=== PATIENT | male | born 1945 | race Caucasian/White ===

== ENCOUNTER 2017-08-07 19:33 | Emergency (ER) | payer MEDICARE, BC ==
[2017-08-07 20:33] LABS: Bilirubin Negative (Negative); Blood, Urine Moderate (Negative); Clarity Clear (Clear); Glucose, Urine (Dipstick) Negative (Negative); Leukocyte Negative (Negative); Nitrite Negative (Negative); Protein, Urine (Dipstick) Negative (Neg-Trace); Specific Gravity, Urine 1.025 (1.005-1.030)
[2017-08-07 20:40] LABS: Bacteria/HPF None Seen HPF (None Seen); Hyaline Casts/LPF 0-3 HYALINE CAST LPF (0-3 Hyaline); Transitional Epithelial 0-3 HPF (0-3); WBC/HPF 0-3 HPF (0-3); Yeast-All Forms Rare HPF (None Seen)
[2017-08-07 20:45] LABS: #Basophils 0.1 thou/uL (0.0-0.2); #Eosinphils 0.2 thou/uL (0.0-0.7); #Lymphocytes 1.3 thou/uL (1.20-3.40); #Neutrophils 8.9 thou/uL (1.40-6.50); %Basophils 0.6 % (0.0-1.0); %Eosinophils 1.4 % (0.0-10.0); %Lymphocytes 11.4 % (21.0-51.0); %Monocytes 8.7 % (0.0-10.0); %Neutrophils 77.8 % (42.0-75.0); Hemoglobin 14.9 g/dL (14.0-18.0); Mean Corpuscular Hemoglobin 29.2 pg (27.0-31.0); Mean Corpuscular Volume 83.3 fl (80.0-94.0); Mean Platelet Volume 6.5 fL (7.4-10.4); Platelet Count 208 thou/uL (130-400); Red Blood Cell (RBC) Count 5.12 mill/uL (4.70-6.10); White Blood Cell (WBC) Count 11.4 thou/uL (4.8-10.8)
[2017-08-07 20:49] LABS: ALT (SGPT) 11 U/L (8-55); AST (SGOT) 14 U/L (5-34); Albumin 3.8 g/dL (3.4-4.8); Alkaline Phosphatase 82 U/L (40-150); Anion Gap 14 mmol/L (10-20); BUN (Urea Nitrogen) 17 mg/dL (8.4-25.7); Bilirubin, Total 0.8 mg/dL (0.2-1.2); Calc. Creatinine Clearance 0 mL/min (70-130); Calcium 9.2 mg/dL (7.8-10.44); Carbon Dioxide 20 mmol/L (23-31); Chloride 106 mmol/L (98-107); Estimated GFR-MDRD 57; Globulin 3.1 g/dL (2.4-3.5); Glucose 103 mg/dL (83-110); Potassium 3.8 mmol/L (3.5-5.1); Protein, Total 6.9 g/dL (5.8-8.1); Sodium 136 mmol/L (136-145)
--- NOTE | 2017-08-07 21:50 | CT ---
NONCONTRAST CT ABDOMEN AND PELVIS: 08/07/2017 HISTORY: Left flank pain and back pain with onset of symptoms this morning. Vomiting. COMPARISON: 11/19/2016 FINDINGS: There is bibasilar atelectasis and/or mild scarring. Post cholecystectomy changes are again present. Nonobstructing bilateral renal calculi are again seen. There is now mild left hydronephrosis and hyd roureter with an approximately 4 mm calculus within the proximal left ureter. There is perinephric s tranding seen on the left, which is asymmetric, compared to the right. The previously noted hematoma in the left perinephric fat noted on the prior study has resolved. No right ureteral calculus or hydronephrosis is present. There is a stable subcentimeter hypodense lesion in the left hepatic lobe. Post cholecystectomy changes are noted. The spleen, pancreas, bilateral adrenal glands, and decompressed urinary bladder demonstrate a grossl y normal nonenhanced CT appearance. An IVC filter is again noted in place. There is colonic diverticulosis. Vascular calcifications are again seen in the abdominal aorta and iliac arteries. Degenerative changes are again present in the spine, and there is a stable compression fracture of th e L4 vertebral body, although height loss, centrally, may be slightly greater than on the prior study , and there is now a prominent Schmorl's node at the superior endplate. Multilevel degenerative hurt ges are again seen throughout the lumbar spine. IMPRESSION: 1. Partially obstructing proximal left ureteral calculus measuring 4 mm. 2. Nonobstructing bilateral renal calculi. 3. Colonic diverticulosis. 4. The remainder of the findings are as described above and are unchanged from prior exam, although there has been resolution of the bilateral pleural effusions and left perinephric hematoma since the prior study. POS: BREN
[2017-08-07] MEDS ORDERED: traMADol HCl 50 MG TAB ONE (22:04)
== END 2017-08-07 22:10 | disposition home or self-care (01) ==
LOC: SCSER 19:33
DX: N13.2 Hydronephrosis with renal and ureteral calculous obstruction (principal); I25.2 Old myocardial infarction; F03.90 Unspecified dementia, unspecified severity, without behavioral disturbance, psychotic disturbance, mood disturbance, and anxiety; F41.9 Anxiety disorder, unspecified; F32.9 Major depressive disorder, single episode, unspecified; Z86.73 Personal history of transient ischemic attack (TIA), and cerebral infarction without residual deficits; Z87.891 Personal history of nicotine dependence
CPT/HCPCS: 51701; 74176; 80053; 81003; 81015; 85025

== ENCOUNTER 2017-10-30 13:26 | Emergency (ER) | payer MEDICARE, BC ==
--- NOTE | 2017-10-30 14:34 | CT ---
CT OF THE ABDOMEN AND PELVIS WITHOUT CONTRAST: Date: 10/31/17 PROVIDED CLINICAL HISTORY: Flank pain. FINDINGS: Comparison with 08/07/17. The visualized lung bases appear clear. Nonobstructing right renal calculus is seen. No additional ur inary tract calculi are evident. Solid abdominal organs are suboptimally evaluated without IV contras t, but demonstrate an otherwise unremarkable unenhanced CT appearance. Stable right hepatic lobe cyst . No bowel dilatation, inflammatory fat stranding, free fluid, or free air apparent. Vascular calcifica tions are seen. The osseous structures demonstrate no concerning lytic or blastic lesions. Degenerative changes are s een involving the lumbar spine. IVC filter is again noted in place. IMPRESSION: Nonobstructing right nephrolithiasis. POS: BREN
[2017-10-30 14:45] LABS: #Basophils 0.1 thou/uL (0.0-0.2); #Eosinphils 0.3 thou/uL (0.0-0.7); #Lymphocytes 1.8 thou/uL (1.20-3.40); #Monocytes 0.6 thou/uL (0.11-0.59); #Neutrophils 4.2 thou/uL (1.40-6.50); %Basophils 1.3 % (0.0-1.0); %Eosinophils 4.4 % (0.0-10.0); %Monocytes 8.5 % (0.0-10.0); %Neutrophils 59.8 % (42.0-75.0); Hemoglobin 14.9 g/dL (14.0-18.0); Mean Corpuscular HGB CONC 33.8 g/dL (32.0-36.0); Mean Corpuscular Hemoglobin 28.2 pg (27.0-31.0); Mean Corpuscular Volume 83.4 fL (78.0-98.0); Mean Platelet Volume 7.9 fL (7.4-10.4); Platelet Count 175 thou/uL (130-400); RBC Distribution Width 12.8 % (11.5-14.5); Red Blood Cell (RBC) Count 5.28 mill/uL (4.70-6.10); White Blood Cell (WBC) Count 6.9 thou/uL (4.8-10.8)
[2017-10-30 15:01] LABS: ALT (SGPT) 10 U/L (8-55); AST (SGOT) 16 U/L (5-34); Albumin 4.2 g/dL (3.4-4.8); Alkaline Phosphatase 67 U/L (40-150); Anion Gap 14 mmol/L (10-20); BUN (Urea Nitrogen) 17 mg/dL (8.4-25.7); Bilirubin, Total 0.6 mg/dL (0.2-1.2); Calc. Creatinine Clearance 0 mL/min (70-130); Calcium 10.1 mg/dL (7.8-10.44); Carbon Dioxide 22 mmol/L (23-31); Chloride 107 mmol/L (98-107); Estimated GFR-MDRD 74; Globulin 2.7 g/dL (2.4-3.5); Glucose 93 mg/dL (83-110); Lipase 18 U/L (8-78); Potassium 4.3 mmol/L (3.5-5.1); Protein, Total 6.9 g/dL (5.8-8.1); Sodium 139 mmol/L (136-145)
[2017-10-30 15:47] LABS: Bilirubin Negative (Negative); Blood, Urine Negative (Negative); Clarity Clear (Clear); Glucose, Urine (Dipstick) Negative (Negative); Leukocyte Negative (Negative); Nitrite Negative (Negative); Protein, Urine (Dipstick) Negative (Neg-Trace); Specific Gravity, Urine 1.015 (1.005-1.030); Urobilinogen 0.2 mg/dL (0.2-1.0); pH, Urine 7.5 (5.0-9.0)
[2017-10-30] MEDS ORDERED: Acetaminophen 500 MG TAB ONE (16:09)
== END 2017-10-30 16:57 | disposition home or self-care (01) ==
LOC: SCSER 13:26
DX: N20.0 Calculus of kidney (principal); M54.5 Low back pain; F03.90 Unspecified dementia, unspecified severity, without behavioral disturbance, psychotic disturbance, mood disturbance, and anxiety; F41.9 Anxiety disorder, unspecified; F32.9 Major depressive disorder, single episode, unspecified; Z79.82 Long term (current) use of aspirin; Z79.899 Other long term (current) drug therapy; Z86.73 Personal history of transient ischemic attack (TIA), and cerebral infarction without residual deficits
CPT/HCPCS: 74176; 80053; 81003; 83690; 85025

== ENCOUNTER 2022-06-23 15:59 | Inpatient (IN) | payer MEDICARE, BC ==
[2022-06-23 16:42] LABS: #Basophils 0.1 thou/uL (0.0-0.2); #Eosinphils 0.1 thou/uL (0.0-0.7); #Lymphocytes 1.2 thou/uL (1.20-3.40); #Monocytes 0.4 thou/uL (0.11-0.59); #Neutrophils 3.1 thou/uL (1.40-6.50); %Basophils 1.7 % (0.0-1.0); %Eosinophils 2.5 % (0.0-10.0); %Lymphocytes 24.2 % (21.0-51.0); %Monocytes 7.3 % (0.0-10.0); %Neutrophils 64.4 % (42.0-75.0); Hemoglobin 13.9 g/dL (14.0-18.0); Mean Corpuscular Hemoglobin 28.2 pg (27.0-31.0); Mean Corpuscular Volume 85.3 fl (78.0-98.0); Mean Platelet Volume 7.8 fL (7.4-10.4); Platelet Count 151 10x3/uL (130-400); RBC Distribution Width 14.1 % (11.5-14.5); Red Blood Cell (RBC) Count 4.94 mill/uL (4.70-6.10); White Blood Cell (WBC) Count 4.8 10x3/uL (4.8-10.8)
[2022-06-23 16:57] LABS: PTT 32.1 sec (22.9-36.1); Prothrombin Time 13.9 sec (12.0-14.7)
[2022-06-23 16:58] LABS: Bilirubin Negative (Negative); Blood, Urine Negative (Negative); Clarity Clear (Clear); Glucose, Urine (Dipstick) Normal (Negative); Ketone, Urine Negative (Negative); Leukocyte Negative Leu/uL (Negative); Nitrite Negative (Negative); Protein, Urine (Dipstick) Negative (Neg-Trace); Urobilinogen Normal mg/dL (Less than 2); pH, Urine 6.5 (5.0-9.0)
[2022-06-23 17:02] LABS: ALT (SGPT) Less than 7 U/L (8-55); AST (SGOT) 13 U/L (5-34); Albumin 3.7 g/dL (3.4-4.8); Alkaline Phosphatase 84 U/L (40-110); Anion Gap 14 mmol/L (10-20); BUN (Urea Nitrogen) 22 mg/dL (8.4-25.7); Bilirubin, Total 0.4 mg/dL (0.2-1.2); CK (CPK) 30 U/L (30-200); Calc. Creatinine Clearance 0 mL/min (70-130); Calcium 8.9 mg/dL (7.8-10.44); Carbon Dioxide 22 mmol/L (23-31); Chloride 106 mmol/L (98-107); Estimated GFR 86; Globulin 2.9 g/dL (2.4-3.5); Glucose 91 mg/dL (83-110); Lipase 15 U/L (8-78); Potassium 3.8 mmol/L (3.5-5.1); Protein, Total 6.6 g/dL (5.8-8.1); Sodium 138 mmol/L (136-145)
[2022-06-23 17:04] LABS: Amphetamine Not Detected (NotDetected); Barbiturates Screen Not Detected (NotDetected); Benzodiazepine Screen Not Detected (NotDetected); Cocaine Metabolite Screen Not Detected (NotDetected); Methadone Not Detected (NotDetected); Methamphetamine Not Detected (NotDetected); Opiate Screen Not Detected (NotDetected); Oxycodone Screen Not Detected (NotDetected); Phencyclidine (PCP) Not Detected (NotDetected); THC/Cannabinoid Screen Not Detected (NotDetected); Tricyclic Screen Not Detected (NotDetected)
[2022-06-23 17:08] LABS: Acetaminophen Less than 10.0 mcg/mL (10.0-30.0); Alcohol Less than 10 mg/dL (Less than 10); Salicylate Less than 8.0 mg/dL (15.0-30.0)
[2022-06-23] MEDS ORDERED: Nitroglycerin 2% Ointment 1 INCH/1 GM Packet ONE (18:35)
[2022-06-23] MEDS ORDERED: Ondansetron PF 4 MG/2 ML Vial IVP PRN (18:45)
[2022-06-23] MEDS ORDERED: Ondansetron ODT 4 MG TAB SL PRN (18:45)
[2022-06-23] MEDS ORDERED: Acetaminophen 325 MG TAB PO PRN (18:45)
[2022-06-23 21:00] VITALS: BMI 24.6
[2022-06-24] MEDS: Levothyroxine Sodium 100 MCG TAB PO SCH (06:00)
[2022-06-24] MEDS ORDERED: Fludrocortisone Acetate 0.1 MG TAB PO SCH (09:00)
[2022-06-24] MEDS ORDERED: Finasteride 5 MG TAB PO SCH (09:00)
[2022-06-24] MEDS: busPIRone HCl 10 MG TAB PO SCH (10:36)
[2022-06-24] MEDS: Sertraline 100 MG TAB PO SCH (10:36)
[2022-06-24] MEDS: Polyethylene Glycol 3350 17 GM Packet PO SCH (10:36)
[2022-06-24] MEDS: Finasteride 5 MG TAB PO SCH (20:30)
[2022-06-25] MEDS: Levothyroxine Sodium 100 MCG TAB PO SCH (05:52)
[2022-06-25] MEDS: Polyethylene Glycol 3350 17 GM Packet PO SCH (10:59)
[2022-06-25] MEDS: busPIRone HCl 10 MG TAB PO SCH (11:00)
[2022-06-25] MEDS: Fludrocortisone Acetate 0.1 MG TAB PO SCH (11:00)
[2022-06-25] MEDS: Sertraline 100 MG TAB PO SCH (11:00)
[2022-06-25] MEDS: Trospium 20 MG TAB PO SCH ×2 (14:47→20:11)
[2022-06-25] MEDS: Finasteride 5 MG TAB PO SCH (20:11)
[2022-06-26 05:12] LABS: Hemoglobin 13.3 g/dL (14.0-18.0); Mean Corpuscular HGB CONC 31.4 g/dL (32.0-36.0); Mean Corpuscular Hemoglobin 27.2 pg (27.0-31.0); Mean Corpuscular Volume 86.6 fl (78.0-98.0); Mean Platelet Volume 7.7 fL (7.4-10.4); Platelet Count 167 10x3/uL (130-400); RBC Distribution Width 14.4 % (11.5-14.5); Red Blood Cell (RBC) Count 4.89 mill/uL (4.70-6.10); White Blood Cell (WBC) Count 5.6 10x3/uL (4.8-10.8)
[2022-06-26] MEDS: Levothyroxine Sodium 100 MCG TAB PO SCH (05:16)
[2022-06-26 05:20] LABS: Anion Gap 12 mmol/L (10-20); BUN (Urea Nitrogen) 24 mg/dL (8.4-25.7); Calc. Creatinine Clearance 69 mL/min (70-130); Carbon Dioxide 23 mmol/L (23-31); Chloride 108 mmol/L (98-107); Estimated GFR 77; Glucose 82 mg/dL (83-110); Potassium 3.7 mmol/L (3.5-5.1); Sodium 139 mmol/L (136-145)
[2022-06-26] MEDS: busPIRone HCl 10 MG TAB PO SCH (09:09)
[2022-06-26] MEDS: Fludrocortisone Acetate 0.1 MG TAB PO SCH (09:10)
[2022-06-26] MEDS: Sertraline 100 MG TAB PO SCH (09:11)
[2022-06-26] MEDS: Trospium 20 MG TAB PO SCH ×2 (09:11→21:04)
[2022-06-26] MEDS: Polyethylene Glycol 3350 17 GM Packet PO SCH (09:14)
[2022-06-26] MEDS: Finasteride 5 MG TAB PO SCH (21:04)
[2022-06-27] MEDS: Levothyroxine Sodium 100 MCG TAB PO SCH (05:18)
[2022-06-27] MEDS: Fludrocortisone Acetate 0.1 MG TAB PO SCH (08:18)
[2022-06-27] MEDS: Trospium 20 MG TAB PO SCH (08:18)
[2022-06-27] MEDS: Sertraline 100 MG TAB PO SCH (08:19)
[2022-06-27] MEDS: busPIRone HCl 10 MG TAB PO SCH (08:20)
[2022-06-27] MEDS: Polyethylene Glycol 3350 17 GM Packet PO SCH (08:27)
[2022-06-27 12:20] VITALS: TEMP 97.5
[2022-06-27 19:30] VITALS: BP 159/62
== END 2022-06-27 19:00 | DRG 918 ==
LOC: ERS 15:59 → 2NO 18:18 → OBSVTOIN 06-25 09:57
PROVIDERS: ADMIT Family Medicine; ATTEND Family Medicine
DX: T50.911A Poisoning by multiple unspecified drugs, medicaments and biological substances, accidental (unintentional), initial encounter (principal); R44.3 Hallucinations, unspecified; D68.69 Other thrombophilia; G31.09 Other frontotemporal neurocognitive disorder; F02.80 Dementia in other diseases classified elsewhere, unspecified severity, without behavioral disturbance, psychotic disturbance, mood disturbance, and anxiety; I10 Essential (primary) hypertension; K59.00 Constipation, unspecified; R55 Syncope and collapse; R53.1 Weakness; Z96.651 Presence of right artificial knee joint; I25.2 Old myocardial infarction; Z86.718 Personal history of other venous thrombosis and embolism; Z88.5 Allergy status to narcotic agent; Z88.0 Allergy status to penicillin; Z88.7 Allergy status to serum and vaccine; Z79.890 Hormone replacement therapy; Z79.899 Other long term (current) drug therapy; Z90.49 Acquired absence of other specified parts of digestive tract; Z87.891 Personal history of nicotine dependence
CPT/HCPCS: 36415; 70450; 71045; 80048; 80053; 80306; 80307; 81003; 82140; 82550; 83690; 84443; 84484; 85025; 85027; 85610; 85730; 93005; 94760; 96372; G0378; J1650; U0003; U0005

== ENCOUNTER 2022-07-09 21:02 | Inpatient (IN) | payer MEDICARE, BC ==
[2022-07-09 22:52] LABS: #Basophils 0.1 thou/uL (0.0-0.2); #Lymphocytes 0.1 thou/uL (1.20-3.40); #Monocytes 0.1 thou/uL (0.11-0.59); #Neutrophils 6.1 thou/uL (1.40-6.50); %Basophils 1.6 % (0.0-1.0); %Eosinophils 0.2 % (0.0-10.0); %Monocytes 1.5 % (0.0-10.0); %Neutrophils 94.7 % (42.0-75.0); Hemoglobin 13.1 g/dL (14.0-18.0); Mean Corpuscular HGB CONC 32.2 g/dL (32.0-36.0); Mean Corpuscular Hemoglobin 27.9 pg (27.0-31.0); Mean Corpuscular Volume 86.6 fl (78.0-98.0); Mean Platelet Volume 7.6 fL (7.4-10.4); Platelet Count 173 10x3/uL (130-400); RBC Distribution Width 14.2 % (11.5-14.5); Red Blood Cell (RBC) Count 4.71 mill/uL (4.70-6.10); White Blood Cell (WBC) Count 6.5 10x3/uL (4.8-10.8)
[2022-07-09 23:09] LABS: ALT (SGPT) 13 U/L (8-55); AST (SGOT) 14 U/L (5-34); Albumin 3.6 g/dL (3.4-4.8); Alkaline Phosphatase 77 U/L (40-110); Anion Gap 15 mmol/L (10-20); BUN (Urea Nitrogen) 17 mg/dL (8.4-25.7); Bilirubin, Total 0.3 mg/dL (0.2-1.2); Calc. Creatinine Clearance 0 mL/min (70-130); Calcium 8.7 mg/dL (7.8-10.44); Carbon Dioxide 18 mmol/L (23-31); Chloride 110 mmol/L (98-107); Estimated GFR 89; Glucose 168 mg/dL (83-110); Potassium 3.1 mmol/L (3.5-5.1); Protein, Total 6.6 g/dL (5.8-8.1); Sodium 140 mmol/L (136-145)
[2022-07-09] MEDS ORDERED: Ondansetron ODT 4 MG TAB PO PRN (23:39)
[2022-07-09] MEDS ORDERED: Acetaminophen 325 MG TAB PO PRN (23:39)
[2022-07-09] MEDS ORDERED: Ibuprofen 200 MG TAB PO PRN (23:40)
[2022-07-09] MEDS ORDERED: EPINEPHrine 1 mg/ml MDV (1ml Charge) IM PRN (23:45)
[2022-07-09] MEDS ORDERED: diphenhydrAMINE 50 MG/ML VIAL IVP PRN (23:45)
[2022-07-10] MEDS ORDERED: Lisinopril 10 MG TAB PO SCH ×3 (01:15→16:15)
[2022-07-10] MEDS: Lactated Ringer's 1,000 ML IV SCH ×4 (01:25→20:38)
[2022-07-10] MEDS: Aztreonam 1 GM in Sodium Chloride 0.9% 100 ML IVPB SCH ×3 (01:26→17:34)
[2022-07-10 03:00] VITALS: BMI 26.3
[2022-07-10 06:08] LABS: #Lymphocytes 0.5 thou/uL (1.20-3.40); #Monocytes 0.1 thou/uL (0.11-0.59); #Neutrophils 3.3 thou/uL (1.40-6.50); %Eosinophils 0.3 % (0.0-10.0); %Lymphocytes 13.3 % (21.0-51.0); %Monocytes 3.6 % (0.0-10.0); Hemoglobin 12.8 g/dL (14.0-18.0); Mean Corpuscular HGB CONC 32.5 g/dL (32.0-36.0); Mean Corpuscular Volume 86.1 fl (78.0-98.0); Mean Platelet Volume 7.6 fL (7.4-10.4); Platelet Count 166 10x3/uL (130-400); Red Blood Cell (RBC) Count 4.56 mill/uL (4.70-6.10)
[2022-07-10 06:25] LABS: Bacteria/HPF None Seen HPF (None Seen); Bilirubin Negative (Negative); Blood, Urine 2+ (Negative); Clarity Clear (Clear); Glucose, Urine (Dipstick) Normal (Negative); Ketone, Urine 10 mg/dL (Negative); Leukocyte 500 Leu/uL (Negative); Nitrite Negative (Negative); Protein, Urine (Dipstick) 20 mg/dL (Neg-Trace); Specific Gravity, Urine 1.043 (1.002-1.036); Squamous Epithelial None Seen HPF (0-3); Urobilinogen Normal mg/dL (Less than 2); WBC/HPF Greater than 50 HPF (0-3); pH, Urine 5.5 (5.0-9.0)
[2022-07-10 06:31] LABS: ALT (SGPT) 13 U/L (8-55); AST (SGOT) 13 U/L (5-34); Albumin 3.4 g/dL (3.4-4.8); Alkaline Phosphatase 73 U/L (40-110); Anion Gap 11 mmol/L (10-20); BUN (Urea Nitrogen) 18 mg/dL (8.4-25.7); Bilirubin, Total 0.3 mg/dL (0.2-1.2); Calc. Creatinine Clearance 91 mL/min (70-130); Calcium 8.5 mg/dL (7.8-10.44); Carbon Dioxide 20 mmol/L (23-31); Chloride 111 mmol/L (98-107); Estimated GFR 91; Globulin 2.9 g/dL (2.4-3.5); Glucose 164 mg/dL (83-110); Potassium 3.3 mmol/L (3.5-5.1); Protein, Total 6.3 g/dL (5.8-8.1); Sodium 139 mmol/L (136-145)
[2022-07-10] MEDS: Potassium Chloride 20 MEQ in Premix Bag 1 BAG IVPB SCH ×2 (10:04→14:13)
[2022-07-10] MEDS: Fludrocortisone Acetate 0.1 MG TAB PO SCH (12:04)
[2022-07-10] MEDS: Trospium 20 MG TAB PO SCH ×2 (12:04→20:37)
[2022-07-10] MEDS: Levothyroxine Sodium 100 MCG TAB PO SCH (12:05)
[2022-07-10] MEDS: busPIRone HCl 10 MG TAB PO SCH (12:05)
[2022-07-10] MEDS: Sertraline 100 MG TAB PO SCH ×2 (12:05→20:37)
[2022-07-10] MEDS: hydrALAZINE 20 MG/ML VIAL SLOW IVP PRN (16:12)
[2022-07-10] MEDS ORDERED: diphenhydrAMINE 25 MG CAP PO SCH (16:15)
[2022-07-10] MEDS: Finasteride 5 MG TAB PO SCH (20:37)
[2022-07-10] MEDS ORDERED: Calcium Carbonate 500 MG ChewTAB PO SCH (23:59)
[2022-07-11] MEDS: Aztreonam 1 GM in Sodium Chloride 0.9% 100 ML IVPB SCH (00:04)
[2022-07-11] MEDS: Calcium Carbonate 500 MG ChewTAB PO PRN (04:15)
[2022-07-11] MEDS: Ondansetron PF 4 MG/2 ML Vial IVP PRN ×2 (04:58→23:28)
[2022-07-11 06:26] LABS: #Eosinphils 0.1 thou/uL (0.0-0.7); #Monocytes 0.6 thou/uL (0.11-0.59); #Neutrophils 6.7 thou/uL (1.40-6.50); %Basophils 0.1 % (0.0-1.0); %Eosinophils 1.7 % (0.0-10.0); %Monocytes 7.2 % (0.0-10.0); Hemoglobin 12.2 g/dL (14.0-18.0); Mean Corpuscular HGB CONC 32.8 g/dL (32.0-36.0); Mean Corpuscular Hemoglobin 28.5 pg (27.0-31.0); Mean Corpuscular Volume 86.9 fl (78.0-98.0); Mean Platelet Volume 7.8 fL (7.4-10.4); Platelet Count 187 10x3/uL (130-400); RBC Distribution Width 14.1 % (11.5-14.5); Red Blood Cell (RBC) Count 4.29 mill/uL (4.70-6.10); White Blood Cell (WBC) Count 8.5 10x3/uL (4.8-10.8)
[2022-07-11 06:29] LABS: ALT (SGPT) 10 U/L (8-55); AST (SGOT) 12 U/L (5-34); Albumin 3.3 g/dL (3.4-4.8); Alkaline Phosphatase 62 U/L (40-110); Anion Gap 11 mmol/L (10-20); BUN (Urea Nitrogen) 20 mg/dL (8.4-25.7); Bilirubin, Total 0.3 mg/dL (0.2-1.2); Calc. Creatinine Clearance 79 mL/min (70-130); Calcium 8.8 mg/dL (7.8-10.44); Carbon Dioxide 22 mmol/L (23-31); Chloride 110 mmol/L (98-107); Estimated GFR 86; Globulin 2.8 g/dL (2.4-3.5); Glucose 92 mg/dL (83-110); Potassium 3.2 mmol/L (3.5-5.1); Protein, Total 6.1 g/dL (5.8-8.1); Sodium 140 mmol/L (136-145)
[2022-07-11] MEDS ORDERED: Lisinopril 20 MG TAB PO SCH (09:00)
[2022-07-11] MEDS ORDERED: Cipro 250 MG TAB PO SCH (09:00)
[2022-07-11] MEDS: Potassium Chloride 20 MEQ in Premix Bag 1 BAG IVPB SCH ×2 (09:55→13:05)
[2022-07-11] MEDS: Lisinopril 20 MG TAB PO SCH (09:56)
[2022-07-11] MEDS: Fludrocortisone Acetate 0.1 MG TAB PO SCH (09:56)
[2022-07-11] MEDS: busPIRone HCl 10 MG TAB PO SCH (09:57)
[2022-07-11] MEDS: Trospium 20 MG TAB PO SCH ×2 (09:57→21:07)
[2022-07-11] MEDS: Sertraline 100 MG TAB PO SCH ×2 (09:57→21:07)
[2022-07-11] MEDS: Levothyroxine Sodium 100 MCG TAB PO SCH (09:57)
[2022-07-11] MEDS: Finasteride 5 MG TAB PO SCH (21:07)
[2022-07-11] MEDS: hydrALAZINE 20 MG/ML VIAL SLOW IVP PRN (23:28)
[2022-07-12] MEDS: Calcium Carbonate 500 MG ChewTAB PO PRN (03:40)
[2022-07-12 05:04] LABS: #Eosinphils 0.1 thou/uL (0.0-0.7); #Lymphocytes 0.8 thou/uL (1.20-3.40); #Monocytes 0.7 thou/uL (0.11-0.59); #Neutrophils 7.6 thou/uL (1.40-6.50); %Basophils 0.1 % (0.0-1.0); %Eosinophils 1.3 % (0.0-10.0); %Monocytes 7.8 % (0.0-10.0); %Neutrophils 81.8 % (42.0-75.0); Hemoglobin 12.8 g/dL (14.0-18.0); Mean Corpuscular HGB CONC 32.3 g/dL (32.0-36.0); Mean Corpuscular Hemoglobin 27.9 pg (27.0-31.0); Mean Corpuscular Volume 86.4 fl (78.0-98.0); Mean Platelet Volume 7.2 fL (7.4-10.4); Platelet Count 196 10x3/uL (130-400); White Blood Cell (WBC) Count 9.2 10x3/uL (4.8-10.8)
[2022-07-12 05:31] LABS: ALT (SGPT) 11 U/L (8-55); AST (SGOT) 12 U/L (5-34); Albumin 3.3 g/dL (3.4-4.8); Alkaline Phosphatase 68 U/L (40-110); Anion Gap 11 mmol/L (10-20); BUN (Urea Nitrogen) 17 mg/dL (8.4-25.7); Bilirubin, Total 0.4 mg/dL (0.2-1.2); Calc. Creatinine Clearance 78 mL/min (70-130); Calcium 8.7 mg/dL (7.8-10.44); Carbon Dioxide 24 mmol/L (23-31); Chloride 109 mmol/L (98-107); Estimated GFR 85; Globulin 3.1 g/dL (2.4-3.5); Glucose 94 mg/dL (83-110); Potassium 3.7 mmol/L (3.5-5.1); Protein, Total 6.4 g/dL (5.8-8.1); Sodium 140 mmol/L (136-145)
[2022-07-12] MEDS ORDERED: Cipro 250 MG TAB PO SCH (06:00)
[2022-07-12] MEDS: Cipro 250 MG TAB PO SCH ×2 (06:55→21:33)
[2022-07-12] MEDS ORDERED: Amlodipine 5 MG TAB PO SCH (09:00)
[2022-07-12] MEDS: Fludrocortisone Acetate 0.1 MG TAB PO SCH (09:21)
[2022-07-12] MEDS: Trospium 20 MG TAB PO SCH ×2 (09:22→21:33)
[2022-07-12] MEDS: Lisinopril 20 MG TAB PO SCH (09:23)
[2022-07-12] MEDS: Sertraline 100 MG TAB PO SCH ×2 (09:24→21:34)
[2022-07-12] MEDS: busPIRone HCl 10 MG TAB PO SCH (09:24)
[2022-07-12] MEDS: Levothyroxine Sodium 100 MCG TAB PO SCH (09:24)
[2022-07-12] MEDS: Finasteride 5 MG TAB PO SCH (21:34)
[2022-07-13] MEDS: Calcium Carbonate 500 MG ChewTAB PO PRN (04:57)
[2022-07-13 05:09] LABS: #Eosinphils 0.2 thou/uL (0.0-0.7); #Lymphocytes 1.1 thou/uL (1.20-3.40); #Monocytes 0.6 thou/uL (0.11-0.59); #Neutrophils 6.6 thou/uL (1.40-6.50); %Basophils 0.1 % (0.0-1.0); %Eosinophils 2.2 % (0.0-10.0); %Lymphocytes 13.3 % (21.0-51.0); %Monocytes 7.2 % (0.0-10.0); %Neutrophils 77.2 % (42.0-75.0); Hemoglobin 12.2 g/dL (14.0-18.0); Mean Corpuscular HGB CONC 31.2 g/dL (32.0-36.0); Mean Corpuscular Hemoglobin 27.2 pg (27.0-31.0); Mean Platelet Volume 7.3 fL (7.4-10.4); Platelet Count 185 10x3/uL (130-400); Red Blood Cell (RBC) Count 4.51 mill/uL (4.70-6.10); White Blood Cell (WBC) Count 8.6 10x3/uL (4.8-10.8)
[2022-07-13 05:37] LABS: ALT (SGPT) 8 U/L (8-55); AST (SGOT) 11 U/L (5-34); Albumin 3.1 g/dL (3.4-4.8); Alkaline Phosphatase 63 U/L (40-110); Anion Gap 10 mmol/L (10-20); BUN (Urea Nitrogen) 17 mg/dL (8.4-25.7); Bilirubin, Total 0.5 mg/dL (0.2-1.2); Calc. Creatinine Clearance 70 mL/min (70-130); Calcium 8.6 mg/dL (7.8-10.44); Carbon Dioxide 24 mmol/L (23-31); Chloride 107 mmol/L (98-107); Estimated GFR 74; Globulin 2.9 g/dL (2.4-3.5); Glucose 103 mg/dL (83-110); Potassium 3.3 mmol/L (3.5-5.1); Sodium 138 mmol/L (136-145)
[2022-07-13] MEDS ORDERED: Potassium Chloride 20 MEQ TAB PO SCH (07:00)
[2022-07-13] MEDS: Polyethylene Glycol 3350 17 GM Packet PO PRN ×2 (08:39→16:05)
[2022-07-13] MEDS: Levothyroxine Sodium 100 MCG TAB PO SCH (08:39)
[2022-07-13] MEDS: Lisinopril 20 MG TAB PO SCH (08:40)
[2022-07-13] MEDS: Sertraline 100 MG TAB PO SCH ×2 (08:40→22:00)
[2022-07-13] MEDS: Cipro 250 MG TAB PO SCH ×2 (08:40→16:03)
[2022-07-13] MEDS: Trospium 20 MG TAB PO SCH ×2 (08:41→21:58)
[2022-07-13] MEDS: Fludrocortisone Acetate 0.1 MG TAB PO SCH (08:41)
[2022-07-13] MEDS: busPIRone HCl 10 MG TAB PO SCH (08:42)
[2022-07-13] MEDS ORDERED: Bisacodyl 5 MG TAB PO SCH (09:30)
[2022-07-13] MEDS: Finasteride 5 MG TAB PO SCH (21:58)
[2022-07-14 05:45] LABS: #Eosinphils 0.4 thou/uL (0.0-0.7); #Lymphocytes 1.2 thou/uL (1.20-3.40); #Monocytes 0.5 thou/uL (0.11-0.59); #Neutrophils 5.6 thou/uL (1.40-6.50); %Eosinophils 4.9 % (0.0-10.0); %Monocytes 7.1 % (0.0-10.0); Hemoglobin 12.4 g/dL (14.0-18.0); Mean Corpuscular HGB CONC 32.1 g/dL (32.0-36.0); Mean Corpuscular Hemoglobin 27.7 pg (27.0-31.0); Mean Corpuscular Volume 86.4 fl (78.0-98.0); Mean Platelet Volume 7.5 fL (7.4-10.4); Platelet Count 164 10x3/uL (130-400); Red Blood Cell (RBC) Count 4.46 mill/uL (4.70-6.10); White Blood Cell (WBC) Count 7.6 10x3/uL (4.8-10.8)
[2022-07-14 06:11] LABS: ALT (SGPT) 10 U/L (8-55); AST (SGOT) 12 U/L (5-34); Albumin 3.3 g/dL (3.4-4.8); Alkaline Phosphatase 62 U/L (40-110); Anion Gap 9 mmol/L (10-20); BUN (Urea Nitrogen) 15 mg/dL (8.4-25.7); Bilirubin, Total 0.3 mg/dL (0.2-1.2); Calc. Creatinine Clearance 84 mL/min (70-130); Calcium 8.6 mg/dL (7.8-10.44); Carbon Dioxide 25 mmol/L (23-31); Chloride 108 mmol/L (98-107); Estimated GFR 89; Globulin 2.8 g/dL (2.4-3.5); Glucose 93 mg/dL (83-110); Potassium 3.6 mmol/L (3.5-5.1); Protein, Total 6.1 g/dL (5.8-8.1); Sodium 138 mmol/L (136-145)
[2022-07-14] MEDS ORDERED: Cipro 250 MG TAB PO SCH (07:30)
[2022-07-14] MEDS: Cipro 250 MG TAB PO SCH (08:38)
[2022-07-14] MEDS: busPIRone HCl 10 MG TAB PO SCH (09:00)
[2022-07-14] MEDS: Trospium 20 MG TAB PO SCH (09:00)
[2022-07-14] MEDS ORDERED: Polyethylene Glycol 3350 17 GM Packet PO SCH (09:00)
[2022-07-14] MEDS: Lisinopril 20 MG TAB PO SCH (09:00)
[2022-07-14] MEDS: Sertraline 100 MG TAB PO SCH (09:01)
[2022-07-14] MEDS: Levothyroxine Sodium 100 MCG TAB PO SCH (09:01)
[2022-07-14] MEDS: Fludrocortisone Acetate 0.1 MG TAB PO SCH (09:01)
[2022-07-14] MEDS: Calcium Carbonate 500 MG ChewTAB PO PRN (10:05)
[2022-07-14 11:57] VITALS: BP 145/77; TEMP 97.9
== END 2022-07-14 14:13 | disposition home health service (06) | DRG 915 ==
LOC: ERS 21:02 → ERHOLD 22:28 → NEURO 07-10 00:39
PROVIDERS: ADMIT Family Medicine; ATTEND Family Medicine
PROC: 3E033XZ Introduction of Vasopressor into Peripheral Vein, Percutaneous Approach (ICD-10-PCS; principal; 2022-07-09)
DX: T88.6XXA Anaphylactic reaction due to adverse effect of correct drug or medicament properly administered, initial encounter (principal); A41.9 Sepsis, unspecified organism; N39.0 Urinary tract infection, site not specified; T78.3XXA Angioneurotic edema, initial encounter; F03.90 Unspecified dementia, unspecified severity, without behavioral disturbance, psychotic disturbance, mood disturbance, and anxiety; K59.00 Constipation, unspecified; T36.1X5A Adverse effect of cephalosporins and other beta-lactam antibiotics, initial encounter; R13.10 Dysphagia, unspecified; R49.0 Dysphonia; I10 Essential (primary) hypertension; N40.0 Benign prostatic hyperplasia without lower urinary tract symptoms; F41.1 Generalized anxiety disorder; I25.2 Old myocardial infarction; Z79.899 Other long term (current) drug therapy; Z79.890 Hormone replacement therapy; Z88.0 Allergy status to penicillin; Z88.8 Allergy status to other drugs, medicaments and biological substances; Z88.6 Allergy status to analgesic agent; Z96.651 Presence of right artificial knee joint; Z86.73 Personal history of transient ischemic attack (TIA), and cerebral infarction without residual deficits; Z98.890 Other specified postprocedural states; Z87.891 Personal history of nicotine dependence; Z88.5 Allergy status to narcotic agent; Z91.81 History of falling; Z88.1 Allergy status to other antibiotic agents; Z88.7 Allergy status to serum and vaccine
CPT/HCPCS: 36415; 71045; 74018; 74176; 80053; 81001; 83605; 85025; 87040; 87086; J0360; J1200; J1650; J2405; J3480; J3490; J7120

== ENCOUNTER 2022-07-16 13:32 | Emergency (ER) | payer MEDICARE, BC ==
[2022-07-16] MEDS ORDERED: Iopamidol-370 76% 500 ML MDV (1 ML CHARGE) ONE (14:31)
[2022-07-16 17:29] LABS: #Eosinphils 0.1 thou/uL (0.0-0.7); #Lymphocytes 1.1 thou/uL (1.20-3.40); #Monocytes 0.8 thou/uL (0.11-0.59); #Neutrophils 7.1 thou/uL (1.40-6.50); %Basophils 0.2 % (0.0-1.0); %Eosinophils 1.5 % (0.0-10.0); %Lymphocytes 12.4 % (21.0-51.0); %Monocytes 8.7 % (0.0-10.0); %Neutrophils 77.2 % (42.0-75.0); Hemoglobin 13.6 g/dL (14.0-18.0); Mean Corpuscular HGB CONC 32.8 g/dL (32.0-36.0); Mean Corpuscular Hemoglobin 27.9 pg (27.0-31.0); Mean Corpuscular Volume 84.9 fl (78.0-98.0); Mean Platelet Volume 7.6 fL (7.4-10.4); Platelet Count 232 10x3/uL (130-400); RBC Distribution Width 13.8 % (11.5-14.5); Red Blood Cell (RBC) Count 4.87 mill/uL (4.70-6.10); White Blood Cell (WBC) Count 9.2 10x3/uL (4.8-10.8)
[2022-07-16 17:47] LABS: ALT (SGPT) 9 U/L (8-55); AST (SGOT) 13 U/L (5-34); Albumin 3.7 g/dL (3.4-4.8); Alkaline Phosphatase 71 U/L (40-110); Anion Gap 14 mmol/L (10-20); BUN (Urea Nitrogen) 14 mg/dL (8.4-25.7); Bilirubin, Total 0.5 mg/dL (0.2-1.2); Calc. Creatinine Clearance 0 mL/min (70-130); Calcium 8.7 mg/dL (7.8-10.44); Carbon Dioxide 21 mmol/L (23-31); Chloride 105 mmol/L (98-107); Estimated GFR 89; Globulin 3.1 g/dL (2.4-3.5); Glucose 100 mg/dL (83-110); Lipase 9 U/L (8-78); Potassium 3.3 mmol/L (3.5-5.1); Protein, Total 6.8 g/dL (5.8-8.1); Sodium 137 mmol/L (136-145)
== END 2022-07-16 22:05 ==
LOC: ERS 13:32
DX: K59.00 Constipation, unspecified (principal); R53.1 Weakness; I25.2 Old myocardial infarction; Z87.891 Personal history of nicotine dependence
CPT/HCPCS: 36415; 74018; 74177; 80053; 83690; 85025

== ENCOUNTER 2024-04-20 11:50 | Inpatient (IN) | payer MEDICARE, BC ==
[2024-04-20 12:31] LABS: #Basophils Less than 0.03 10x3/uL (0.0-0.2); %Basophils 0.4 % (0.0-1.0); %Eosinophils 4.2 % (0.0-10.0); %Lymphocytes 30.6 % (21.0-51.0); %Monocytes 10.6 % (0.0-10.0); Mean Corpuscular HGB CONC 32.4 g/dL (32.0-36.0); Mean Corpuscular Hemoglobin 26.6 pg (27.0-31.0); Platelet Count 178 10x3/uL (130-400); RBC Distribution Width 15.4 % (11.5-14.5); Red Blood Cell (RBC) Count 4.51 mill/uL (4.70-6.10)
[2024-04-20 12:45] LABS: Bacteria/HPF 3+ HPF (None Seen); Bilirubin Negative (Negative); Blood, Urine Negative (Negative); CAUTI Indications for Culture Alt mental st,lethar; Clarity Clear (Clear); Glucose, Urine (Dipstick) Normal (Negative); Ketone, Urine Negative (Negative); Leukocyte 500 Leu/uL (Negative); Nitrite 1+ (Negative); Protein, Urine (Dipstick) Negative (Neg-Trace); Specific Gravity, Urine 1.011 (1.002-1.036); Squamous Epithelial 0-3 HPF (0-3); Urobilinogen Normal mg/dL (Less than 2); WBC/HPF 21-50 HPF (0-3); pH, Urine 5.5 (5.0-9.0)
[2024-04-20 12:46] LABS: Urine Culture Reflex Yes Yes
[2024-04-20 12:50] LABS: ALT (SGPT) 8 U/L (8-55); AST (SGOT) 18 U/L (5-34); Albumin 3.8 g/dL (3.4-4.8); Alkaline Phosphatase 91 U/L (40-110); Anion Gap 10 mmol/L (10-20); BUN (Urea Nitrogen) 27 mg/dL (8.4-25.7); Bilirubin, Total 0.3 mg/dL (0.2-1.2); Calc. Creatinine Clearance 0 mL/min (70-130); Calcium 9.4 mg/dL (7.8-10.44); Carbon Dioxide 21 mmol/L (23-31); Chloride 106 mmol/L (98-107); Estimated GFR 66; Globulin 3.6 g/dL (2.4-3.5); Glucose 89 mg/dL (83-110); Magnesium 2.2 mg/dL (1.6-2.6); Potassium 4.3 mmol/L (3.5-5.1); Protein, Total 7.4 g/dL (5.8-8.1); Sodium 133 mmol/L (136-145)
[2024-04-20] MEDS ORDERED: Senokot S 8.6-50 MG TAB PO PRN (14:07)
[2024-04-20 14:33] LABS: Troponin I Less than 0.010 ng/mL (< 0.028)
[2024-04-20] MEDS: Aztreonam 1 GM in Sodium Chloride 0.9% 100 ML IVPB SCH ×2 (15:47→21:48)
[2024-04-20] MEDS: Sodium Chloride 0.9% 1,000 ML IV SCH (15:51)
[2024-04-20 16:02] VITALS: BMI 25.0
[2024-04-20] MEDS: Famotidine/PF 20 mg/2ml Vial SLOW IVP SCH (20:59)
[2024-04-21] MEDS: Acetaminophen 325 MG TAB PO PRN (00:43)
[2024-04-21] MEDS: Enoxaparin 40 MG (0.4 mL) SYRINGE SC SCH (09:13)
[2024-04-21] MEDS: Dicyclomine 10 MG CAP PO SCH (09:13)
[2024-04-21] MEDS: Guaifenesin DM 100-10/5 ML UDCUP PO PRN (11:20)
[2024-04-21] MEDS: Saccharomyces boulardii 250 MG CAP PO SCH ×2 (11:20→11:27)
[2024-04-21] MEDS: Ketorolac Tromethamine 30 MG (1 mL) VIAL IVP SCH (16:52)
[2024-04-21 16:55] VITALS: BMI 25.0
[2024-04-21] MEDS: QUEtiapine 25 MG TAB PO SCH (21:35)
[2024-04-21] MEDS: Trospium 20 MG TAB PO SCH (21:35)
[2024-04-21] MEDS: Finasteride 5 MG TAB PO SCH (21:35)
[2024-04-21] MEDS: Midodrine HCl 5 MG TAB PO SCH (21:36)
[2024-04-22 05:24] LABS: #Basophils Less than 0.03 10x3/uL (0.0-0.2); %Basophils 0.4 % (0.0-1.0); %Eosinophils 4.4 % (0.0-10.0); %Lymphocytes 20.5 % (21.0-51.0); %Monocytes 11.1 % (0.0-10.0); %Neutrophils 63.2 % (42.0-75.0); Hematocrit 34.8 % (42.0-52.0); Mean Corpuscular HGB CONC 31.6 g/dL (32.0-36.0); Mean Corpuscular Hemoglobin 26.7 pg (27.0-31.0); Mean Corpuscular Volume 84.5 fL (78.0-98.0); Mean Platelet Volume 9.3 fL (7.4-10.4); Platelet Count 143 10x3/uL (130-400); RBC Distribution Width 15.9 % (11.5-14.5); Red Blood Cell (RBC) Count 4.12 mill/uL (4.70-6.10)
[2024-04-22 05:39] LABS: Anion Gap 10 mmol/L (10-20); BUN (Urea Nitrogen) 22 mg/dL (8.4-25.7); Calc. Creatinine Clearance 70 mL/min (70-130); Calcium 8.6 mg/dL (7.8-10.44); Carbon Dioxide 18 mmol/L (23-31); Chloride 113 mmol/L (98-107); Estimated GFR 82; Glucose 84 mg/dL (83-110); Potassium 3.6 mmol/L (3.5-5.1); Sodium 137 mmol/L (136-145)
[2024-04-22] MEDS: Levothyroxine Sodium 100 MCG TAB PO SCH (05:43)
[2024-04-22] MEDS: Fludrocortisone Acetate 0.1 MG TAB PO SCH (07:30)
[2024-04-22] MEDS: Sertraline 100 MG TAB PO SCH (07:31)
[2024-04-22 12:08] VITALS: BP 128/76; TEMP 97.8
[2024-04-23] MEDS ORDERED: FLU (Fluad Triv) TS24-25 (65UP)/MF59C/PF 45 MCG/0.5 ML Syringe IM ONE (09:00)
[2024-04-23 11:06] LABS: Campy jejuni + coli by PCR Negative (Negative); STEC Shiga Toxin 1+2 Negative (Negative); Salmonella spp. by PCR Negative (Negative); Shigella spp + EIEC by PCR Negative (Negative)
== END 2024-04-22 15:15 | disposition home or self-care (01) | DRG 689 ==
LOC: ERS 11:50 → T4-B 14:59
PROVIDERS: ADMIT Internal Medicine; ATTEND Internal Medicine
DX: N39.0 Urinary tract infection, site not specified (principal); G93.41 Metabolic encephalopathy; Z16.24 Resistance to multiple antibiotics; B96.1 Klebsiella pneumoniae [K. pneumoniae] as the cause of diseases classified elsewhere; E03.9 Hypothyroidism, unspecified; R19.7 Diarrhea, unspecified; I45.10 Unspecified right bundle-branch block; I10 Essential (primary) hypertension; I25.10 Atherosclerotic heart disease of native coronary artery without angina pectoris; N40.0 Benign prostatic hyperplasia without lower urinary tract symptoms; F03.90 Unspecified dementia, unspecified severity, without behavioral disturbance, psychotic disturbance, mood disturbance, and anxiety; Z96.651 Presence of right artificial knee joint; Z88.6 Allergy status to analgesic agent; Z88.1 Allergy status to other antibiotic agents; Z88.5 Allergy status to narcotic agent; Z88.0 Allergy status to penicillin; Z88.7 Allergy status to serum and vaccine; Z87.891 Personal history of nicotine dependence; Z88.8 Allergy status to other drugs, medicaments and biological substances; Z90.49 Acquired absence of other specified parts of digestive tract; Z79.899 Other long term (current) drug therapy; Z86.73 Personal history of transient ischemic attack (TIA), and cerebral infarction without residual deficits; Z86.718 Personal history of other venous thrombosis and embolism; Z91.81 History of falling
CPT/HCPCS: 36415; 71045; 80048; 80053; 81001; 83605; 83735; 84443; 84484; 85025; 87040; 87077; 87086; 87186; 87324; 87428; 87449; 87505; 93005; 96374; J0457; J1650; J1885; J3490; J7030